=== PATIENT | female | born 1985 | race Caucasian/White ===

== ENCOUNTER 2023-10-27 20:57 | Emergency (ER) | payer BC, MEDICAID ==
[~2023-10-27] VITALS: Ht 165.1 cm; Wt 99.8 kg
[2023-10-27] MEDS ORDERED: TDAP DIPH,PERTUSS,TET VAC/PF 0.5 ML DISP.SYRIN IM ONE (21:43)
[2023-10-27] MEDS ORDERED: IBUP-1957 PO (21:47)
[2023-10-27] MEDS ORDERED: CEPH500T PO (21:47)
[2023-10-27] MEDS: TDAP DIPH,PERTUSS,TET VAC/PF 0.5 ML DISP.SYRIN IM ONE (21:56)
[2023-10-27] MEDS ORDERED: LIDOCAINE HCL 1% 20 ML VIAL ONE (22:08)
[2023-10-27] MEDS ORDERED: CEFTRIAXONE 1 G VIAL ONE (22:08)
[2023-10-27] MEDS: CEFTRIAXONE 1 G VIAL IM ONE (22:25)
[2023-10-28 00:03] VITALS: BP 142/79; TEMP 97.8; O2SAT 98
== END 2023-10-28 00:04 | disposition home or self-care (01) ==
LOC: ER 20:59
DX: S91.311A Laceration without foreign body, right foot, initial encounter (principal); G43.909 Migraine, unspecified, not intractable, without status migrainosus; W26.8XXA Contact with other sharp object(s), not elsewhere classified, initial encounter; Y93.89 Activity, other specified; Y92.89 Other specified places as the place of occurrence of the external cause; Y99.8 Other external cause status
CPT/HCPCS: 29505; 73590; 73630; 90471; 90715; 96372; 99284; J0696; J3490; A4606; A4663

== ENCOUNTER 2024-08-13 17:56 | Emergency (ER) | payer BC ==
[~2024-08-13] VITALS: Ht 165.1 cm; Wt 108.9 kg
[~2024-08-13 17:56] MED LIST: CEPH500T PO; IBUP-1957 PO
[2024-08-13 19:08] LABS: BASOPHILS # (AUTO) 0.1 K/UL (0.0-0.2); BASOPHILS % (AUTO) 0.5 % (0.0-2.0); EOSINOPHILS # (AUTO) 0.2 K/uL (0.0-0.7); EOSINOPHILS % (AUTO) 1.9 % (0.0-7.0); HEMATOCRIT 40.5 % (31.2-41.9); HEMOGLOBIN 13.7 g/dL (10.9-14.3); LYMPHOCYTES # (AUTO) 3.4 K/uL (0.8-4.8); LYMPHOCYTES % (AUTO) 27.8 % (20.5-51.5); MEAN CORPUSCULAR HEMOGLOBIN 28.6 uug (24.7-32.8); MEAN CORPUSCULAR HGB CONC 34 g/dL (32.3-35.6); MONOCYTES # (AUTO) 0.9 K/uL (0.1-1.30); MONOCYTES % (AUTO) 7.3 % (0.0-11.0); NEUTROPHILS # (AUTO) 7.6 K/uL (1.8-8.9); NEUTROPHILS % (AUTO) 62.5 % (38.5-71.5); PLATELET COUNT (AUTO) 306 K/uL (179-408); RED BLOOD CELL COUNT(AUTO) 4.77 MIL/uL (3.63-4.92); RED CELL DISTRIBUTION WIDTH 12.8 % (12.3-17.7); WHITE BLOOD COUNT (AUTO) 12.1 K/uL (3.8-11.8)
[2024-08-13 19:13] LABS: CALCIUM 9.7 mg/dL (8.5-10.1); CARBON DIOXIDE 26 mmol/L (21-32); CHLORIDE 103 mmol/L (98-107); CREATININE 0.6 mg/dL (0.6-1.3); GLUCOSE 97 mg/dL (74-106); POTASSIUM 3.9 mmol/L (3.5-5.1); SODIUM SERUM 140 mmol/L (136-145); UREA NITROGEN, BLOOD 13 mg/dL (7-18)
[2024-08-13 19:18] LABS: ETHANOL < 3 MG/DL (0-10)
[2024-08-13 19:25] LABS: ALANINE AMINOTRANSFERASE 30 U/L (14-59); ALBUMIN 3.6 g/dL (3.4-5.0); ALKALINE PHOSPHATASE 64 U/L (50-136); ASPARTATE AMINOTRANSFERASE 16 U/L (15-37); BILIRUBIN,TOTAL 0.2 mg/dL (0.2-1.0); NT-PRO BNP 34 pg/mL (0-125); TOTAL PROTEIN, SERUM 7.9 g/dL (6.4-8.2)
[2024-08-13 19:44] LABS: *BILIRUBIN,URIN NEGATIVE (NEGATIVE); *BLOOD, URINE 2+ (NEGATIVE); *CLARITY,URINE CLEAR (CLEAR); *COLOR,URINE YELLOW (YELLOW); *KETONES,URINE NEGATIVE (NEGATIVE); *PROTEIN,URINE TRACE (NEGATIVE); *UROBILINOGEN,URINE 0.2 E.U./dl (NORMAL); LEUKOCYTE ESTERASE ,URINE NEGATIVE (NEGATIVE); NITRITE, URINE NEGATIVE (NEGATIVE); UGLUCOSE NEGATIVE (NEGATIVE)
[2024-08-13 19:48] LABS: *URINE HCG, QUAL NEGATIVE (NEGATIVE)
[2024-08-13 19:52] LABS: BACTERIA,URINE NONE SEEN /HPF (NONE SEEN); SQUAMOUS EPITHELIAL CELL,UR FEW /HPF (NONE SEEN); WBC,URINE 0-3 /HPF (0-3)
[2024-08-13 19:55] LABS: *AMPHETAMINE, URINE NEGATIVE (NEGATIVE); *BARBITURATE, URINE NEGATIVE (NEGATIVE); *BENZODIAZEPINE, URINE NEGATIVE (NEGATIVE); *CANNABINOID, URINE NEGATIVE (NEGATIVE); *COCCAINE, URINE NEGATIVE (NEGATIVE); *OPIATE, URINE NEGATIVE (NEGATIVE); *PHENCYCLIDINE SCREEN,URINE NEGATIVE (NEGATIVE); FENTANYL, URINE NEGATIVE (NEGATIVE)
[2024-08-13] MEDS ORDERED: IOHEXOL 350 100 ML INFUS..BTL ONE (20:02)
[2024-08-13] MEDS ORDERED: SWABABLE VALVE TRANSFER SET EA MC ONE (20:02)
[2024-08-13] MEDS ORDERED: IV NORMAL SALINE 250 ML IV ONE (20:02)
[2024-08-13] MEDS ORDERED: ALBU18HF2 INH (23:09)
[2024-08-13 23:28] VITALS: BP 132/73; O2SAT 97
== END 2024-08-13 23:29 | disposition home or self-care (01) ==
LOC: ER 18:00
DX: R07.9 Chest pain, unspecified (principal); G43.909 Migraine, unspecified, not intractable, without status migrainosus; R06.02 Shortness of breath; R05.9 Cough, unspecified; Z88.7 Allergy status to serum and vaccine; Z86.79 Personal history of other diseases of the circulatory system
CPT/HCPCS: 80053; 81001; 84703; 83880; 85025; 84484; 36415; 71045; 71275; 93005; 99285; 80320; 80307; Q9967; A4606; A4663; G0480